=== PATIENT | female | born 1970 | race African-American/Black ===

== ENCOUNTER 2021-08-05 11:53 | Emergency (ER) | payer MEDICAID ==
[~2021-08-05] VITALS: Ht 172.7 cm; Wt 70.0 kg
[2021-08-05] MEDS ORDERED: LACTATED RINGERS 500 ML IV STA (13:14)
[2021-08-05] MEDS ORDERED: MECLIZINE 25MG TABLET PO ONE (13:15)
[2021-08-05 13:41] LABS: CLARITY URINE CLEAR (CLEAR); COLOR URINE YELLOW (YELLOW); KETONES URINE NEGATIVE (NEGATIVE); LEUKOCYTE ESTERASE URINE NEGATIVE (NEGATIVE); NITRITE URINE NEGATIVE (NEGATIVE); OCCULT BLOOD URINE NEGATIVE (NEGATIVE); PROTEIN URINE NEGATIVE (NEGATIVE); SPECIFIC GRAVITY URINE 1.007 (1.005-1.030); UROBILINOGEN URINE 0.2 E.U./dL (0.2-1.0)
[2021-08-05 13:42] LABS: CHLORIDE 104 mEq/L (98-107)
[2021-08-05 14:10] LABS: INR 1.1; PROTHROMBIN TIME 11.3 sec (9.6-11.0)
[2021-08-05 14:53] LABS: BASOPHILS % 0.7 % (0.0-2.0); EOSINOPHILS % 2.5 % (0.0-5.0); HEMATOCRIT. 47.5 % (36.0-48.0); HEMOGLOBIN. 15.7 g/dL (12.0-16.0); LYMPHOCYTES % 20.6 % (20.0-50.0); MEAN CORPUSCULAR HEMOGLOBIN 31.6 pg (28.0-32.0); MEAN PLATELET VOLUME 7.6 fl (7.4-10.4); MONOCYTES % 5.2 % (2.0-8.0); PLATELET 437 x1000/uL (130-400); RED BLOOD CELL COUNT 4.95 mill/uL (4.2-5.4); RED CELL DISTRIBUTION WIDTH 13.6 % (11.6-14.6)
[2021-08-05] MEDS ORDERED: MECL-159 MT (17:06)
[2021-08-05 17:14] VITALS: BP 106/78
== END 2021-08-05 17:17 | disposition home or self-care (01) ==
LOC: ER 11:53
DX: R42 Dizziness and giddiness (principal); Z88.0 Allergy status to penicillin; Z88.2 Allergy status to sulfonamides
CPT/HCPCS: 36415; 80053; 81003; 81025; 83880; 84484; 85025; 85610; 93005; 96360; 99285; J7120; J8597